=== PATIENT | female | born 1935 | race Caucasian/White ===

== ENCOUNTER 2020-01-05 09:27 | Outpatient (CLI) | payer MEDICARE, SELFPAY ==
--- NOTE | 2020-01-05 09:33 | MM_ITS ---
WS: [id number] SCREENING DIGITAL MAMMOGRAM WITH CAD HISTORY: SCREENING COMPARISON: 12/24/2017, 01/05/2016 Bilateral CC and MLO views submitted. Computer aided detection analyzed. Breast composition: The breasts are heterogeneously dense, which may obscure small masses. Palpable marker is placed 6:00 LEFT breast. This examination was requested as a screening therefore a dditional diagnostic workup cannot be performed at this time. MM/[id number] IMPRESSION: BI-RADS: 0-Incomplete: Need additional imaging evaluation FOLLOW UP: Need Additional Imaging Patient indicates a palpable painful area at 6:00 LEFT breast. Recommend furthe r workup with spot compression views and ultrasound.
== END 2020-01-05 09:28 | disposition home or self-care (01) ==
LOC: RADSHAW 09:30
PROVIDERS: PCP Family Medicine; Visit Provider Family Medicine
DX: Z12.31 Encounter for screening mammogram for malignant neoplasm of breast (principal); N64.4 Mastodynia
CPT/HCPCS: 77067

== ENCOUNTER 2020-01-27 12:00 | Outpatient (CLI) | payer MEDICARE, SELFPAY ==
--- NOTE | 2020-01-27 12:26 | MM_ITS ---
WS: [id number] Left breast diagnostic digital mammogram, 01/27/2020 Clinical Data: Patient indicates a palpable painful area at 6:00 LEFT breast Comparison: 01/27/2020, 01/05/2020, 12/24/2017, 01/05/2016, 08/11/2014, 03/21/2013, 01/24/2012, 12/06/2010, 11/25/2009, 11/05/2008, 11/04/2007, 11/06/2006, 11/01/2006. Findings: Compression views of the left breast in the CC and MLO projection along with an mL view showed no spi culated masses or clustered calcifications. The area of interest showed no abnormalities. Heterogeneo us density was seen. MM/[id number] Impression: 1. Negative left breast mammogram. 2. Recommend left breast ultrasound. BIRADS: 2-Benign FOLLOW UP: See Report The CAD land checker was used.
--- NOTE | 2020-01-27 12:26 | US_ITS ---
WS: [id number] Left breast ultrasound, 01/27/2020 Clinical Data: Patient indicates palpable painful area 6:00 L breast Comparison: None. Findings: The 6:00 region of the left breast was scanned. There are no cysts or masses. Only normal breast tiss ue was seen. US/US breast LT limited* [id number] Impression: 1. Negative left breast ultrasound. 2. Recommend clinical follow-up. BIRADS: 2-Benign FOLLOW UP: See Report
== END 2020-01-27 12:01 | disposition home or self-care (01) ==
LOC: RADSHAW 12:03
PROVIDERS: PCP Family Medicine; Visit Provider Family Medicine
DX: N64.4 Mastodynia (principal)
CPT/HCPCS: 76642; 77065

== ENCOUNTER 2020-03-04 12:51 | Outpatient (CLI) | payer MEDICARE, SELFPAY ==
--- NOTE | 2020-03-04 13:10 | XR_ITS ---
WS: [id number] Bone mineral density performed on a LK FREEMAN IDXA, 03/04/2020 Clinical data: POST MENOPAUSAL COMPARISON STUDY: DEXA scan, 02/19/2018. Findings: The first 4 lumbar vertebral bodies demonstrated the bone mineral density of 1.208 g/cm2 for a young adult T score of 0.2. Measurement of the left hip reveals a bone mineral density of 0.955 g/cm2 with a young adult T score of -0.4. Measurement of the right hip reveals the bone mineral density of 0.993 g/cm2 for young adult T score of -0.1. XR/XR DEXA axial skeleton* [id number] Impression: 1. The bone mineral density lumbar spine is normal with only a minor decrease f rom the prior bone mineral density. 2. Normal bone mineral density of both hips with a slight decrease in bone mine ral density from the prior study.
== END 2020-03-04 12:52 | disposition home or self-care (01) ==
LOC: RADWPI 12:55
PROVIDERS: PCP Family Medicine; Visit Provider Family Medicine
DX: Z78.0 Asymptomatic menopausal state (principal)
CPT/HCPCS: 77080

== ENCOUNTER 2021-02-15 08:52 | Outpatient (CLI) | payer MEDICARE, SELFPAY ==
--- NOTE | 2021-02-15 08:57 | MM_ITS ---
WS: [id number] BILATERAL SCREENING DIGITAL MAMMOGRAM WITH CAD HISTORY: SCREENING COMPARISON: 01/27/2020 and 01/05/2020 and 12/24/2018 Bilateral CC and MLO views submitted. Computer aided detection analyzed. Breast composition: The breasts are heterogeneously dense, which may obscure small masses. No suspici ous masses, microcalcifications or architectural distortion. Vascular calcifications. MM/[id number] IMPRESSION: BI-RADS: 2-Benign FOLLOW UP: 1 Year Follow-up
== END 2021-02-15 08:53 | disposition home or self-care (01) ==
LOC: RADSHAW 08:54
PROVIDERS: PCP Family Medicine; Visit Provider Family Medicine
DX: Z12.31 Encounter for screening mammogram for malignant neoplasm of breast (principal)
CPT/HCPCS: 77067

== ENCOUNTER 2021-11-29 09:59 | Outpatient (CLI) | payer MEDICARE, SELFPAY ==
--- NOTE | 2021-11-29 10:06 | CT_ITS ---
WS: [id number] CT ABDOMEN AND PELVIS WITH CONTRAST HISTORY: ACUTE PANCREATITIS TECHNIQUE: Imaging performed of the abdomen and pelvis with IV contrast. Single phase imaging of the abdomen. Coronal and sagittal reformats are submitted. All CT scans at [facility] use at [address] one of these dose optimization techniques: automated exposure control; mA and/or kV adjustment per patient size (includes targeted exams where dose is matched to clinical indication); or iterative re construction. IV CONTRAST: Omnipaque 350; 95 mL IV. Oral contrast: No DLP: 948.71 mGy.cm COMPARISON: None available. Lower thorax: Peripheral lung reticulations. Heart is normal size. Small hiatal hernia. Liver/biliary system: Normal size with no intrahepatic dilatation. Gallbladder: Status post cholecystectomy. Common bile duct is dilated to 9.4 mm. Pancreas: Mild edema in the pancreatic head with loss of the normal contour. There is also mild edema in the adjacent duodenal C-loop. Pancreatic duct is not dilated. Spleen: Normal size spleen. No mass or infarct. Adrenal glands: Normal. Right kidney: Normal. Left kidney: Normal. Aorta: Mild atherosclerosis with no aneurysm. Lymphadenopathy: None. Free fluid: None. GI tract: Normal distention of the stomach. Mild wall thickening involving the pylorus and proximal d uodenum. No small bowel obstruction. The appendix is normal. Inspissated fecal material throughout th e colon. Numerous sigmoid diverticula without acute diverticulitis. Abdominal wall: Fat containing umbilical hernia. Pelvis: No free fluid or adenopathy within the pelvis. Atrophic uterus. Negative urinary bladder. Bones: L5 anterolisthesis by 12 mm. Severe disc space narrowing and desiccation at L5-S1 with bone up on bone. Invagination of the S1 vertebral body into the inferior endplate of L5. L5 pars defects. CT/CT abdomen pelvis w con* [id number] IMPRESSION: 1. Edema and loss of the normal architecture of the pancreatic head with only minimal soft tissue stranding. No pancreatic duct dilatation. Additional edema in the antrum and duodenal C-loop. Favor these changes are probably all related to mild acute pancreatitis or duodenitis. Short-term follow-up recommended to exclude underlying mass. Follow-up CT with IV contrast suggested in 4-6 weeks. 2. Common bile duct is mildly dilated at 9.4 mm. No stone identified within th e duct. Some of the dilatation may be related to aging. 3. Prior cholecystectomy. 4. Hiatal hernia.
[2021-11-29] MEDS: iohexol 350 mg/mL 100 mL Btl IV (10:21)
[2021-11-29 11:18] LABS: Basophils % 0.4 %; Eosinophils % 0.3 %; Hematocrit 38.6 % (37.0-47.0); Hemoglobin 12.9 g/dL (11.5-15.3); Lymphocytes # 1.6 10^3/uL (0.8-4.8); Lymphocytes % 22.7 %; Mean Corpuscular HGB Conc 33.4 g/dL (30.0-36.0); Mean Corpuscular Hemoglobin 30.2 pg (28.0-34.0); Mean Corpuscular Volume 90.4 fl (81-99); Mean Platelet Volume 9.6 fL (7.4-10.4); Monocytes # 0.5 10^3/uL (0.2-0.9); Monocytes % 7.5 %; Neutrophils # 4.95 10^3/uL (1.8-7.7); Neutrophils % 68.4 %; Nucleated Red Blood Cells % 0 %; Platelet Count 344 10^3/cmm (130-400); Red Blood Count 4.27 10^6/uL (4.1-5.3); Red Cell Distribution Width 13.2 % (12.1-15.1); White Blood Count 7.2 10^3/uL (4.0-10.0)
[2021-11-29 11:41] LABS: Alanine Aminotransferase 13 U/L (0-33); Albumin Level 4.3 g/dL (3.5-5.2); Alkaline Phosphatase 41 U/L (35-105); Amylase 45 U/L (28-100); Anion Gap 14.7 (5-19); Aspartate Amino Transferase 15 U/L (0-32); Blood Urea Nitrogen 10 mg/dL (8-23); Calcium 9.3 mg/dL (8.5-10.5); Carbon Dioxide 24 mmol/L (22-29); Chloride 94 mmol/L (98-107); Globulin 3.3 g/dL (1.3-4.6); Glucose 92 mg/dL (65-115); Lactate Dehydrogenase 222 U/L (135-214); Lipase 28 U/L (13-60); Osmolality Calculated 267 mOsm/kg (285-295); Potassium 3.7 mmol/L (3.5-5.1); Sodium 129 mmol/L (136-145); Total Bilirubin 0.6 mg/dL (0.15-1.2); Total Protein 7.6 g/dL (6.6-8.7); Triglycerides 60 mg/dL (0-150)
== END 2021-11-29 10:00 | disposition home or self-care (01) ==
LOC: RAD 10:01
PROVIDERS: PCP Family Medicine; Visit Provider Family Medicine
DX: K85.80 Other acute pancreatitis without necrosis or infection (principal); R60.0 Localized edema; Z90.49 Acquired absence of other specified parts of digestive tract; K44.9 Diaphragmatic hernia without obstruction or gangrene
CPT/HCPCS: 74177; 80053; 82150; 83615; 83690; 84478; 85025

== ENCOUNTER 2021-12-06 09:29 | Emergency (ER) | payer MEDICARE, SELFPAY ==
[2021-12-06 09:30] VITALS: BMI 28.8
--- NOTE | 2021-12-06 09:35 | CT_ITS ---
WS: [id number] CT ABDOMEN PELVIS TECHNIQUE: Contrast-enhanced CT of the abdomen and pelvis with coronal and sagittal reformatted image s. CLINICAL INFORMATION: abd pain COMPARISON: November 29, 2021 DLP: 569.[address] scans at [facility] use at least one of these dose optimization techniques: automated e xposure control; mA and/or kV adjustment per patient size (includes targeted exams where dose is matc hed to clinical indication); or iterative reconstruction. FINDINGS: Diffuse fatty infiltration liver. Prior cholecystectomy. Normal portal vein and splenic vein. Normal spleen. Small esophageal hiatal hernia with air-fluid level. Slight bibasilar atelectasis. Normal grace creatic parenchymal enhancement. Again seen is slight prominence of the pancreatic head with circumfe rential thickening of the adjacent duodenum. This is similar in appearance to previous. No significan t inflammatory stranding. No pancreatic fluid collections. Differential considerations include duoden itis versus pancreatitis. Recommend endoscopy to exclude duodenal neoplasm. Adrenal glands are normal. Normal renal parenchymal enhancement. No hydronephrosis. Normal caliber abdominal aorta. Mild aortic calcification. No abdominal or pelvic lymphadenopathy. Sigmoid diverticulosis. No evidence of acute diverticulitis. No evidence of high-grade small or large bowel obstruction. Chronic anterolisthesis L5 on S1 measuring 12 mm. 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 CT/CT abdomen pelvis w con* [id number] IMPRESSION: 1. Again seen is mild prominence of the pancreatic head with circumferential t hickening of the adjacent duodenum with luminal narrowing. Recommend correlatio n with pancreatic enzymes and further evaluation of the duodenum with endoscopy to exclude neoplasm. 2. No peripancreatic or upper abdominal fluid collections. 3. Prior cholecystectomy. 4. Stable prominence of the common bile duct measuring 9 mm unchanged. 5. No hydronephrosis in either kidney. 6. Sigmoid diverticulosis. No evidence of acute diverticulitis 7. Chronic anterolisthesis L5 on S1 measuring 12 mm with chronic spondylolysis .
[2021-12-06 09:38] VITALS: BP 146/83; PULSE 83; RESP 18; TEMP 37; O2SAT 98
[2021-12-06 09:52] LABS: Basophils % 0.2 %; Eosinophils % 0.1 %; Hematocrit 38.3 % (37.0-47.0); Hemoglobin 13.2 g/dL (11.5-15.3); Lymphocytes # 1.5 10^3/uL (0.8-4.8); Lymphocytes % 16.3 %; Mean Corpuscular HGB Conc 34.5 g/dL (30.0-36.0); Mean Corpuscular Hemoglobin 30.9 pg (28.0-34.0); Mean Corpuscular Volume 89.7 fl (81-99); Mean Platelet Volume 9.5 fL (7.4-10.4); Monocytes # 0.7 10^3/uL (0.2-0.9); Neutrophils # 6.88 10^3/uL (1.8-7.7); Nucleated Red Blood Cells % 0 %; Platelet Count 298 10^3/cmm (130-400); Red Blood Count 4.27 10^6/uL (4.1-5.3); Red Cell Distribution Width 13.1 % (12.1-15.1); White Blood Count 9.2 10^3/uL (4.0-10.0)
[2021-12-06] MEDS: sodium chloride 0.9% 1,000 ML 999 ML IV (10:03)
[2021-12-06] MEDS: iohexol 350 mg/mL 100 mL Btl IV (10:05)
[2021-12-06 10:08] VITALS: BP 154/92; PULSE 71; O2SAT 96
--- NOTE | 2021-12-06 10:12 | W.ED.NAVMDI ---
HPI - Nausea/Vomiting/Diarrhea General: Chief complaint: Nausea/Vomiting/Diarrhea Stated complaint: N/V Time Seen by Provider: 12/06/21 09:30 Source: patient Mode of arrival: ambulatory History of Present Illness: 86 yo female with complaints of abd pain - relates to the RUQ. CT showed pancreatitis x 1 wk ago. MD elicited complaint: nausea and vomiting Onset (ago): week(s) (2) Description of vomiting: food contents and watery Associated nausea: Yes Associated abdominal pain: Yes Location of pain: RUQ Pain consistency: intermittent Severity: moderate Quality: cramping Exacerbating factors: eating Relieving factors: none Associated symtoms: Reports nausea; Denies altered mental status, anxiety, bloating, change in vision, chest pain, cough, diaphoresis, decreased urine output, dizziness, dysuria, epistaxis, fatigue, fecal incontinence, fevers/chills, headache(s), anorexia, malaise, myalgias, numbness, palpitations, rash, short of breath, syncope, tenesmus, tinnitus or weakness Review of Systems Const: Denies: fever(s), chills, fatigue, malaise or diaphoresis Eyes: Denies: change in vision ENMT: Denies: tinnitus or epistaxis Card: Denies: chest pain, palpitations or syncope Resp: Denies: dyspnea, productive cough or non-productive cough GI: Reports: abdominal pain, nausea, vomiting and diarrhea; Denies: bloating, fecal incontinence or hematochezia : Denies: flank pain, difficulty voiding, dysuria, urinary frequency or urinary urgency Skin/Breast: Denies: rash or pruritus Neuro: Denies: headache(s) or dizziness Psych: Denies: anxiety PFSH ED PFSH: Medical History (Updated 12/06/21 @ 12:46 by Yoel Olsen DO) GERD (gastroesophageal reflux disease) Hypercholesterolemia Mitral valve prolapse Pancreatitis Surgical History History of cholecystectomy Social History Smoking and tobacco status: never smoked Alcohol intake: never History of recent travel: Yes Physical Exam Const: COMMON NORMALS: no acute distress EXAM LIMITATIONS: no altered mental status GENERAL APPEARANCE: cooperative and comfortable ORIENTATION/CONSCIOUSNESS: Yes awake, Yes oriented to person, Yes oriented to place and Yes oriented to time HENMT: COMMON NORMALS: normocephalic, atraumatic and hearing grossly normal bilaterally HEAD & SCALP: normocephalic and atraumatic Resp: COMMON NORMALS: normal respiratory effort, No retractions, No use of accessory muscles and clear to auscultation bilaterally AUSCULTATION: clear to auscultation bilaterally Cardio: COMMON NORMALS: regular rate, regular rhythm and No murmurs present (Cardio) RATE: regular rate RHYTHM: regular rhythm GI: COMMON NORMALS: Soft to palpation and No hepatosplenomegaly present AUSCULTATION: Yes normoactive bowel sounds PALPATION: Yes Soft to palpation, No Tenderness to palpation present (GI), No Guarding due to palpation present (GI) and Yes No hepatosplenomegaly present Extremity: COMMON NORMALS: normal to inspection, capillary refill normal, no clubbing, cyanosis or edema, no calf tenderness and no pedal edema Neuro: SENSORIUM/ORIENTATION: Yes oriented to person, Yes oriented to place and Yes oriented to time Skin: COMMON NORMALS: no rashes or lesions noted GENERAL SKIN EXAM: no rashes or lesions noted Course Vital Signs: Vital signs: Vital Signs Temperature 98.6 F 12/06/21 09:38 Pulse Rate 76 12/06/21 11:30 Respiratory Rate 18 12/06/21 09:38 Blood Pressure 133/74 12/06/21 11:30 Pulse Oximetry 98 12/06/21 11:30 Oxygen Delivery Me thod 12/06/21 11:30 MDM - Nausea/Vomiting/Diarrhea Medical Decision Making Patient is feeling better with antiemetics and fluids. Questionable mass at the head of the pancreas with some swelling around the duodenum causing some stenosis. She denies any hematemesis. Call Dr. Boggs discussed with him. Also discussed with the patient. Patient is feeling well enough to go home give her promethazine suppositories to use as needed. We will get her set up for follow-up through Dr. Boggs office he planning on arranging for further evaluation of these concerning CT findings. Most of her discomfort today is epigastric and right upper quadrant she does not really have any pain in the left upper quadrant and her lipase is normal do not think this represents pancreatitis. Dr. Boggs is planning on making arrangements for further work-up including possible ERCP EGD and biopsy of the areas of concerns. Discussed with patient dietary modifications she can make to limit discomfort including very low fat small frequent meals. Medical Records I reviewed the patient's medical records. Lab Data I reviewed the patient's lab results. : 12/06/21 09:45 12/06/21 09:45 Radiology Impressions Abdomen/Pelvis CT 12/06/21 09:35 IMPRESSION: 1. Again seen is mild prominence of the pancreatic head with circumferential thickening of the adjacent duodenum with luminal narrowing. Recommend correlation with pancreatic enzymes and further evaluation of the duodenum with endoscopy to exclude neoplasm. 2. No peripancreatic or upper abdominal fluid collections. 3. Prior cholecystectomy. 4. Stable prominence of the common bile duct measuring 9 mm unchanged. 5. No hydronephrosis in either kidney. 6. Sigmoid diverticulosis. No evidence of acute diverticulitis 7. Chronic anterolisthesis L5 on S1 measuring 12 mm with chronic spondylolysis. Laboratory Results WBC 9.2 10^3/uL (4.0-10.0) 12/06/21 09:45 RBC 4.27 10^6/uL (4.1-5.3) 12/06/21 09:45 Hgb 13.2 g/dL (11.5-15.3) 12/06/21 09:45 Hct 38.3 % (37.0-47.0) 12/06/21 09:45 MCV 89.7 fl (81-99) 12/06/21 09:45 MCH 30.9 pg (28.0-34.0) 12/06/21 09:45 MCHC 34.5 g/dL (30.0-36.0) 12/06/21 09:45 RDW 13.1 % (12.1-15.1) 12/06/21 09:45 Plt Count 298 10^3/cmm (130-400) 12/06/21 09:45 MPV 9.5 fL (7.4-10.4) 12/06/21 09:45 Neut % (Auto) 75.0 % 12/06/21 09:45 Lymph % (Auto) 16.3 % 12/06/21 09:45 [place] % (Auto) 8.0 % 12/06/21 09:45 Eos % (Auto) 0.1 % 12/06/21 09:45 Baso % (Auto) 0.2 % 12/06/21 09:45 Neut # (Auto) 6.88 10^3/uL (1.8-7.7) 12/06/21 09:45 Lymph # (Auto) 1.5 10^3/uL (0.8-4.8) 12/06/21 09:45 [place] # (Auto) 0.7 10^3/uL (0.2-0.9) 12/06/21 09:45 Eos # (Auto) 0.0 10^3/uL (0.0-0.8) 12/06/21 09:45 Baso # (Auto) 0.0 10^3/uL (0.0-0.1) 12/06/21 09:45 Nucleated RBC % (auto) 0 % 12/06/21 09:45 Nucleated RBCs # 0.0 /100WBC 12/06/21 09:45 Sodium 127 mmol/L (136-145) L 12/06/21 09:45 Potassium 3.9 mmol/L (3.5-5.1) 12/06/21 09:45 Chloride 92 mmol/L (98-107) L 12/06/21 09:45 Carbon Dioxide 24 mmol/L (22-29) 12/06/21 09:45 Anion Gap 14.9 (5-19) 12/06/21 09:45 BUN 14 mg/dL (8-23) 12/06/21 09:45 Creatinine 0.5 mg/dL (0.5-0.9) 12/06/21 09:45 GFR Calculation Not Reportable 12/06/21 09:45 Glucose 112 mg/dL (65-115) 12/06/21 09:45 Calculated Osmolality 265 mOsm/kg (285-295) L 12/06/21 09:45 Calcium 9.7 mg/dL (8.5-10.5) 12/06/21 09:45 Total Bilirubin 0.4 mg/dL (0.15-1.2) 12/06/21 09:45 AST 16 U/L (0-32) 12/06/21 09:45 ALT 13 U/L (0-33) 12/06/21 09:45 Alkaline Phosphatase 37 U/L (35-105) 12/06/21 09:45 Total Protein 7.4 g/dL (6.6-8.7) 12/06/21 09:45 Albumin 4.3 g/dL (3.5-5.2) 12/06/21 09:45 Globulin 3.1 g/dL (1.3-4.6) 12/06/21 09:45 Lipase 36 U/L (13-60) 12/06/21 09:45 Urine Color Straw (Yellow) 12/06/21 09:50 Urine Appearance Hazy (CLEAR) A 12/06/21 09:50 Urine pH 7 (5-7) 12/06/21 09:50 Ur Specific [place] 1.005 (1.005-1.030) 12/06/21 09:50 Urine Protein Neg (Negative) 12/06/21 09:50 Urine Glucose (UA) Norm (Normal) 12/06/21 09:50 Urine Ketones Negative (Negative) 12/06/21 09:50 Urine Blood 2+ (Negative) H 12/06/21 09:50 Urine Nitrate Negative (Negative) 12/06/21 09:50 Urine Bilirubin Neg (Negative) 12/06/21 09:50 Urine Urobilinogen Neg mg/dL (Negative) 12/06/21 09:50 Ur Leukocyte Esterase Negative (Negative) 12/06/21 09:50 Urine RBC 5-10 /hpf (0-2) H 12/06/21 09:50 Urine WBC None /hpf (0-5) 12/06/21 09:50 Ur Squamous Epith Cells None /hpf (0-5) 12/06/21 09:50 Amorphous Sediment Not Reportable 12/06/21 09:50 Urine Bacteria None /hpf (NONE) 12/06/21 09:50 Discharge Plan Discharge Patient Disposition: Home Clinical Impression: Mass of pancreas, Duodenal stenosis Condition: Stable Prescriptions: New promethazine 25 mg suppository 25 mg IN Q6H PRN (Reason: nausea and vomiting) Qty: 12 0RF No Action omeprazole 20 mg capsule,delayed release(DR/EC) 20 mg PO DAILY cholecalciferol (vitamin D3) 1,250 mcg (50,000 unit) capsule PO Vision Formula (with lutein) 1,000 unit-200 mg-60 unit-2 mg tablet 1 tab PO DAILY Rx Instructions: administer after a meal omega-3 fatty acids 500 mg capsule 500 mg PO DAILY diclofenac sodium [Voltaren] 1 % gel 2 gm TOPICAL QID 30 Days Qty: 100 0RF Rx Instructions: apply to single elbow, wrist or hand; for hand includes palm/fingers/back of hand latanoprost 0.005 % drops 1 drop ophthalmic (eye) .bedtime Discharge Orders: Discharge ED (Routine); Ordered 12/06/21 Ordered By: Yoel Olsen Referrals: Gerald Boggs MD [Primary Care Provider] - Patient Instructions: Opioid Safety, Pain Management Activity Restrictions/Additional Instructions: See Dr. Boggs in the office tomorrow he will make arrangements for further evaluation. Advance diet as you are able recommend avoiding any fatty foods. Coding Level of Care Code ED Heel Slicker for Chg Fwd Exam Detailed
[2021-12-06 10:14] LABS: Alanine Aminotransferase 13 U/L (0-33); Albumin Level 4.3 g/dL (3.5-5.2); Alkaline Phosphatase 37 U/L (35-105); Anion Gap 14.9 (5-19); Aspartate Amino Transferase 16 U/L (0-32); Blood Urea Nitrogen 14 mg/dL (8-23); Calcium 9.7 mg/dL (8.5-10.5); Carbon Dioxide 24 mmol/L (22-29); Chloride 92 mmol/L (98-107); Globulin 3.1 g/dL (1.3-4.6); Glucose 112 mg/dL (65-115); Lipase 36 U/L (13-60); Osmolality Calculated 265 mOsm/kg (285-295); Potassium 3.9 mmol/L (3.5-5.1); Sodium 127 mmol/L (136-145); Total Bilirubin 0.4 mg/dL (0.15-1.2); Total Protein 7.4 g/dL (6.6-8.7)
[2021-12-06 10:24] LABS: Add Urine Microscopic? YES; Bilirubin Urine Neg (Negative); Blood Urine 2+ (Negative); Glucose Urine UA Norm (Normal); Ketones Urine Negative (Negative); Leukocyte Esterase Urine Negative (Negative); Nitrate Urine Negative (Negative); Protein Urine Neg (Negative); Specific Gravity, Urine 1.005 (1.005-1.030); Urine Appearance Hazy (CLEAR); Urine Color Straw (Yellow); Urobilinogen Urine Neg (Negative); pH Urine 7 (5-7)
[2021-12-06 10:25] LABS: Add Urine Culture? No
[2021-12-06 10:30] VITALS: BP 162/86; PULSE 83; O2SAT 97
[2021-12-06 11:00] VITALS: BP 144/74; PULSE 78; O2SAT 97
[2021-12-06 11:30] VITALS: BP 133/74; PULSE 76; O2SAT 98
== END 2021-12-06 13:00 | disposition home or self-care (01) ==
PROVIDERS: Emergency Provider Family Medicine; PCP Family Medicine
DX: K86.9 Disease of pancreas, unspecified (principal); K31.5 Obstruction of duodenum; R00.0 Tachycardia, unspecified
CPT/HCPCS: 74177; 80053; 81001; 83690; 85025; 93270; 96360; 99285; J7030; Q9967

== ENCOUNTER 2021-12-23 13:41 | Outpatient (CLI) | payer MEDICARE, SELFPAY ==
--- NOTE | 2021-12-23 14:12 | MR_ITS ---
WS: [id number] MRCP (MAGNETIC RESONANCE CHOLANGIOPANCREATOGRAPHY) HISTORY: ACUTE PANCREATITIS COMPARISON: CT 12/06/2021 TECHNIQUE: Multiple sequences are performed to evaluate the intra and extrahepatic ducts. Prior cholecystectomy. No intrahepatic bile duct dilatation. Common bile duct is normal size measurin g 6 mm throughout its course. The pancreatic duct is normal. No pancreatic duct dilatation and no per ipancreatic fluid. No enlargement of the pancreatic head. There is no edema around the pancreas and n o evidence for acute pancreatitis. No ascites or pseudocyst. No hepatic or adrenal mass. MR/MR MRCP [id number] IMPRESSION: 1. Normal common bile duct. 2. Status post cholecystectomy. 3. Normal pancreas. No evidence for acute pancreatitis and no pseudocyst.
== END 2021-12-23 13:42 | disposition home or self-care (01) ==
PROVIDERS: PCP Family Medicine; Visit Provider Family Medicine
DX: K85.90 Acute pancreatitis without necrosis or infection, unspecified (principal); Z90.49 Acquired absence of other specified parts of digestive tract
CPT/HCPCS: 74181

== ENCOUNTER → 2022-01-17 14:37 | Outpatient (BNVA) | payer MEDICARE, SELFPAY | PROVIDERS: PCP Family Medicine; Visit Provider Internal Medicine Cardiovascular Disease | DX: R07.9 Chest pain, unspecified (principal); R00.2 Palpitations; R01.1 Cardiac murmur, unspecified; I34.1 Nonrheumatic mitral (valve) prolapse | CPT/HCPCS: 93005; 99204 ==

== ENCOUNTER 2022-01-20 09:44 | Outpatient (CLI) | payer MEDICARE, SELFPAY ==
--- NOTE | 2022-01-20 10:15 | USCV_ITS ---
Geeta Talbert Age: 86 Gender: F : 1935 Exam Date: 01/20/2022 10:27 Ordering Phys: Yvonne Miller MD ([email or web address]) Technologist: Pushpa Herrera [place] [facility] [place]: MVP, palpitations BP: 114 / 78 HR: 77 Rhythm: Sinus Technical Quality: Good MEASUREMENTS (Male / Female) Normal Values 2D ECHO LV Diastolic Diameter PLAX 4.3 cm 4.2 - 5.9 / 3.9 - 5.3 cm LV Systolic Diameter PLAX 3.6 cm IVS Diastolic Thickness 1.0 cm 0.6 - 1.0 / 0.6 - 0.9 cm IVS Systolic Thickness 1.7 cm LVPW Diastolic Thickness 1.0 cm 0.6 - 1.0 / 0.6 - 0.9 cm LVPW Systolic Thickness 1.5 cm LVOT Diameter 2.2 cm LV Ejection Fraction 2D Teich 31.3 % LV Ejection Fraction MOD 2C 55.2 % LV Ejection Fraction 2C AL 58.4 % LA Width 3.3 cm LA Height 4.4 cm RA Width 3.9 cm RA Height 2.8 cm Aorta at Sinotubular Diameter 2.9 cm IVC Diameter 1.4 cm M-MODE MV E Point Septal Separation 0.7 cm DOPPLER AV Peak Velocity 165.0 cm/s LVOT Peak Velocity 86.0 cm/s AV Area Cont Eq vti 2.5 cm squared AV Area Cont Eq pk 2.0 cm squared MV Peak Velocity 116.0 cm/s MV Area PHT 2.2 cm squared Mitral E to A Ratio 0.7 MV E' Velocity 43.5 cm/s Mitral E to MV E' Ratio 12.1 Mitral E to LV E' Lateral Ratio 10.9 Mitral E to LV E' Septal Ratio 13.7 TR Peak Velocity 172.7 cm/s TR Peak Gradient 11.9 mmHg Right Atrial Pressure 3.0 mmHg Pulmonary Artery Systolic Pressu 14.9 mmHg PV Peak Velocity 87.0 cm/s RV Acceleration Time 0.1 s RV Ejection Time 0.3 s RV AcT/ET 0.4 FINDINGS Left Ventricle Normal left ventricular size and systolic function, EF 63 %. No regional wall motion abnormalities. Grade I/IV diastolic dysfunction (abnormal relaxation filling pattern), normal to mildly elevated filling pressures. Right Ventricle The right ventricle is normal in size and function. Right Atrium The right atrium is normal in size. Left Atrium Mildly increased left atrial size. Mitral Valve Moderate mitral annular calcification. Thickened mitral valve. Moderate-severe mitral valve regurgitation. Aortic Valve Thickened aortic valve. Tricuspid Valve Mild tricuspid valve regurgitation. Pulmonic Valve Pulmonic valve not well visualized. Pericardium No pericardial effusion. Aorta Normal aortic annulus size. IVC Normal inferior vena cava. CONCLUSIONS Normal left ventricular size and systolic function, EF 63 %. No regional wall motion abnormalities. Grade I/IV diastolic dysfunction (abnormal relaxation filling pattern), normal to mildly elevated filling pressures. Mildly increased left atrial size. Moderate mitral annular calcification. Thickened mitral valve. Moderate-severe mitral valve regurgitation. Thickened aortic valve. Mild tricuspid valve regurgitation. There is no pericardial effusion. There are no intracardiac masses. Compared to the study from 03/29/2015, there is worsening of the mitral regurgitation Dr Yvonne Miller MD FAC (Electronically Signed) Final Date: 20 January 2022 18:18 S
== END 2022-01-20 09:45 | disposition home or self-care (01) ==
LOC: RAD 09:45
PROVIDERS: PCP Family Medicine; Visit Provider Family Medicine
DX: R06.09 Other forms of dyspnea (principal); R01.1 Cardiac murmur, unspecified; I07.1 Rheumatic tricuspid insufficiency; I35.8 Other nonrheumatic aortic valve disorders; I34.0 Nonrheumatic mitral (valve) insufficiency; I34.81 Nonrheumatic mitral (valve) annulus calcification
CPT/HCPCS: 93306

== ENCOUNTER 2022-04-03 13:52 | Outpatient (CLI) | payer MEDICARE, SELFPAY ==
--- NOTE | 2022-04-03 14:15 | XR_ITS ---
WS: [id number] DEXA (DUAL ENERGY X-RAY ABSORPTIOMETRY) Bone mineral density was performed using a [employer] machine. HISTORY: POSTMENOPAUSAL COMPARISON: 03/04/2020 Lumbar spine BMD (L1-L4): 1.197 g/cm2 T score: 0.1 Z score: 2.1 Total hip BMD: Left: 0.935 g/cm2. T score: -0.6 Z score: 1.8 Right: 0.963 g/cm2. T score: -0.4 Z score: 2.0 10 year probability of a major osteoporotic fracture is 28.8%. Compared to the prior study from 03/04/2020. Lumbar spine bone mineral density has decreased by 0.9%. Bilateral hips bone mineral density has decreased by 2.6%. XR/XR DEXA axial skeleton* [id number] IMPRESSION: NORMAL BONE MINERAL DENSITY based upon the WHO classification for females. Sign ificant decrease in bone mineral density involving the hips since the prior ever dy.
== END 2022-04-03 13:53 | disposition home or self-care (01) ==
LOC: RAD 13:54
PROVIDERS: PCP Family Medicine; Visit Provider Family Medicine
DX: Z78.0 Asymptomatic menopausal state (principal)
CPT/HCPCS: 77080

== ENCOUNTER → 2022-05-18 09:39 | Outpatient (BNVA) | payer MEDICARE, SELFPAY | PROVIDERS: PCP Family Medicine; Visit Provider Internal Medicine Cardiovascular Disease | DX: I34.0 Nonrheumatic mitral (valve) insufficiency (principal); I34.1 Nonrheumatic mitral (valve) prolapse; R03.0 Elevated blood-pressure reading, without diagnosis of hypertension; E78.00 Pure hypercholesterolemia, unspecified | CPT/HCPCS: 99214 ==

== ENCOUNTER → 2022-11-16 10:58 | Outpatient (BNVA) | payer MEDICARE, SELFPAY | PROVIDERS: PCP Family Medicine; Visit Provider Nurse Practitioner Family | DX: D22.5 Melanocytic nevi of trunk (principal); L82.1 Other seborrheic keratosis; L82.0 Inflamed seborrheic keratosis; L57.0 Actinic keratosis; L85.3 Xerosis cutis; L57.8 Other skin changes due to chronic exposure to nonionizing radiation; D18.01 Hemangioma of skin and subcutaneous tissue; Z71.89 Other specified counseling | CPT/HCPCS: 17000; 17003; 17110; 99213 ==